=== PATIENT | female | born 1980 | race African-American/Black ===

== ENCOUNTER 2017-08-16 16:45 | Emergency (ER) | payer SELFPAY ==
[~2017-08-16] VITALS: Ht 157.5 cm; Wt 50.0 kg
[~2017-08-16 16:45] MED LIST: ERYT.5%O LEFT EYE; Z.0.NO CURRENT MEDS
[2017-08-16 16:46] VITALS: BP 135/98; PULSE 88; RESP 14; TEMP 98.1; O2SAT 99
[2017-08-16] MEDS ORDERED: FLUT1SPR5 EACH NARE (18:57)
[2017-08-16] MEDS ORDERED: BENZ100 PO (18:57)
--- NOTE | 2017-08-16 18:57 | PD ---
HPI Chief Complaint: ENT Complaint Time Seen by Provider: 18:53 Travel History International Travel<30 days: No Contact w/Intl Traveler<30days: No Traveled to known affect area: No History of Present Illness HPI 37-year-old female presents for evaluation of sore throat. Symptoms started 2 days ago. Associated with dry cough, hoarse voice, mild ear pressure, nasal congestion. Symptoms are mild, no aggravating or alleviating factors. Denies fevers, chills, rash or recent travel. No sick contacts. No other complaints at this time. PFSH Past Medical History Immunizations Current: No ?: Not Ovarian Cysts: Yes Social History Alcohol Use: Yes (OCC) Tobacco Use: No Substance Use: No Allergies-Medications (Allergen,Severity, Reaction): Coded Allergies: No Known Allergies (Verified , 08/31/12) Reported Meds & Prescriptions Reported Meds & Active Scripts Active Tessalon Perles (Benzonatate) 100 Mg Cap 200 Mg PO TID PRN Flonase Nasal [place] (Fluticasone Nasal [place]) 50 Mcg/Act [place] 100 Mcg EACH NARE BID Ilotycin (Erythromycin) 3.5 Gm Oint 1 Dose LEFT EYE QID Reported No Current Meds (Miscellaneous Medication) Misc Review of Systems General / Constitutional: No: Fever, Chills Eyes: No: Pain HENT: Positive: Sore Throat, Rhinorrhea, Congestion, Earache, No: Headaches, Ear Discharge Cardiovascular: No: Chest Pain or Discomfort Respiratory: Positive: Cough Gastrointestinal: No: Nausea, Vomiting Physical Exam Narrative GENERAL: Well-nourished female no acute distress SKIN: Warm and dry. HEAD: Atraumatic. Normocephalic. EYES: Pupils equal and round. No scleral icterus. No injection or drainage. ENT: No nasal bleeding or discharge. Mucous membranes pink and moist. Tympanic membrane's appear normal without erythema or fluid level. There is mild oral pharyngeal erythema without exudate. NECK: Trachea midline. No JVD. No lymphadenopathy CARDIOVASCULAR: Regular rate and rhythm. No murmur appreciated. RESPIRATORY: No accessory muscle use. Clear to auscultation. Breath sounds equal bilaterally. Data Data Last Documented VS Vital Signs Date Time Temp Pulse Resp B/P (MAP) Pulse Ox O2 Delivery O2 Flow Rate FiO2 08/16/17 16:46 98.1 88 14 135/98 (110) 99 Orders Orders Group A Rapid Strep Screen (08/16/17 18:53) MDM Medical Decision Making Medical Screen Exam Complete: Yes Emergency Medical Condition: Yes Medical Record Reviewed: Yes Differential Diagnosis Pharyngitis, laryngitis, bronchitis, pneumonia, influenza, otitis media Narrative Course 37-year-old female with 3 days of sore throat, hoarse voice, cough, congestion, ear pressure. She appears well. A rapid strep screen was sent however the patient apparently eloped pending the results because she no longer wanted to wait. Diagnosis Primary Impression: Left against medical advice Med/Other Pt SpecificInfo: No Change to Meds Scripts Benzonatate (Tessalon Perles) 100 Mg Cap 200 MG PO TID Y for COUGH, #30 CAP 0 Refills Prov: Preston Chavez MD 08/16/17 Fluticasone Nasal [place] (Flonase Nasal [place]) 50 Mcg/Act [place] 100 MCG EACH NARE BID for Allergies, #1 BOTTLE 0 Refills Prov: Preston Chavez MD 08/16/17 Disposition: 07 AGAINST MEDICAL ADVICE Condition: Stable Pillo Harvey Aug 16, 2017 18:57
== END 2017-08-16 20:00 | disposition left against medical advice (07) ==
LOC: NEPK 16:45
DX: J02.9 Acute pharyngitis, unspecified (principal); R49.0 Dysphonia; R05 Cough; R09.81 Nasal congestion; J34.89 Other specified disorders of nose and nasal sinuses; Z79.899 Other long term (current) drug therapy
CPT/HCPCS: 87081; 87880; 99283